=== PATIENT | male | born 1960 | race Caucasian/White ===

== ENCOUNTER 2020-10-14 08:12 | Day surgery (SDC) | payer OTHER, SELFPAY ==
[~2020-10-14] VITALS: Ht 175.3 cm; Wt 84.4 kg
[2020-10-14] MEDS ORDERED: fentaNYL citrate 0.05 MG/ML VIAL ONE (09:58)
[2020-10-14] MEDS ORDERED: LIDOCAINE 2% 100 MG/5 ML UJET TP ONE (09:58)
[2020-10-14] MEDS ORDERED: diphenhydrAMINE 50 MG/ML VIAL ONE (09:58)
[2020-10-14] MEDS ORDERED: MIDAZOLAM 5 MG/5 ML VIAL ONE (09:58)
[2020-10-14] MEDS ORDERED: fentaNYL citrate 0.05 MG/ML VIAL IVP ONE (11:30)
[2020-10-14] MEDS ORDERED: MIDAZOLAM 2 MG/2 ML VIAL IVP ONE (11:30)
== END 2020-10-14 12:10 | disposition home or self-care (01) ==
LOC: MDS 08:12 → MMU 08:12 → MDS 12:10
PROVIDERS: ATTEND Internal Medicine Gastroenterology
DX: Z12.11 Encounter for screening for malignant neoplasm of colon (principal); K63.5 Polyp of colon; K86.1 Other chronic pancreatitis; K86.81 Exocrine pancreatic insufficiency; I10 Essential (primary) hypertension; E11.9 Type 2 diabetes mellitus without complications; M19.90 Unspecified osteoarthritis, unspecified site; Z20.822 Contact with and (suspected) exposure to COVID-19; Z79.4 Long term (current) use of insulin; Z79.82 Long term (current) use of aspirin; Z79.899 Other long term (current) drug therapy
CPT/HCPCS: 43239; 45385; 82948; J2250; J3010; U0003; J1200